=== PATIENT | male | born 1985 | race American Indian/Alaskan Native ===

== ENCOUNTER 2018-11-24 19:28 | Emergency (ER) | payer SELFPAY ==
--- NOTE | 2018-11-24 19:51 | Event Note ---
ED Screening Note ED Screening Note: pt from [facility] on 101 pt states he was hearing voices saying to kill himself states that the voices said to cut his wrist denies trying to hurt himself before no HI PMHx asthma no allergies to meds +tobacco non drinker denies drug use This initial assessment/diagnostic orders/clinical plan/treatment(s) is/are subject to change based on patients health status, clinical progression and re- assessment by fellow clinical providers in the ED. Further treatment and workup at subsequent clinical providers discretion. Patient/guardian urged not to elope from the ED as their condition may be serious if not clinically assessed and managed. Initial orders include: psych protocol
[2018-11-24 19:53] VITALS: BP 142/79
[2018-11-24 20:28] LABS: Basophils # (Auto) 0.1 K/mm3 (0.0-0.1); Basophils % (Auto) 1.7 % (0.0-1.8); Eosinophils # (Auto) 0.1 K/mm3 (0.0-0.4); Eosinophils % (Auto) 1.6 % (0.0-4.3); Hematocrit 50.1 % (35.5-45.6); Lymphocytes # (Auto) 2.5 K/mm3 (1.2-5.4); Lymphocytes % (Auto) 34.1 % (13.4-35.0); Mean Corpuscular HGB Conc 34 % (32-34); Mean Corpuscular Volume 92 fl (84-94); Monocytes # (Auto) 0.3 K/mm3 (0.0-0.8); Monocytes % (Auto) 4.6 % (0.0-7.3); Platelet Count 270 K/mm3 (140-440); Red Blood Count 5.46 M/mm3 (3.65-5.03); Red Cell Distribution Width 13.6 % (13.2-15.2)
[2018-11-24 20:54] LABS: Bilirubin,Urine NEG (Negative); Blood,Urine NEG (Negative); Color,Urine Yellow (Yellow); Protein,Urine <15 mg/dL mg/dL (Negative); Urobilinogen,Urine < 2.0 mg/dL (<2.0)
[2018-11-24 20:56] LABS: Amphetamine Screen,Urine PRESUMPTIVE NEGATIVE; Benzodiazepines Screen,Urine PRESUMPTIVE NEGATIVE; Cannabinoid Screen,Urine PRESUMPTIVE NEGATIVE; Cocaine Screen,Urine PRESUMPTIVE NEGATIVE; Methadone Screen,Urine PRESUMPTIVE NEGATIVE; Opiate Screen,Urine PRESUMPTIVE NEGATIVE
--- NOTE | 2018-11-24 21:23 | Emergency Department Report ---
ED Psych HPI - General Chief Complaint: Psych Stated Complaint: MH EVAL Time Seen by Provider: 11/24/18 19:50 Source: patient Mode of arrival: Ambulatory - History of Present Illness Initial Comments: 33 yo M w/ hx schizophrenia presents to ED from [facility]. Pt reported to his counselor that he began hearing voices today telling him to hurt himself. Pt states the voices are telling him to cut himself with a razor, but pt states, "That's stupid because it's a dull razor." Patient also reports that the razors are locked up and he does not have access to them. Patient states he is not suicidal and does not feel compelled to hurt himself. Denies HI. Denies drugs or alcohol use. States he is on Invega. Complaint: other (auditory hallucinations) -: This afternoon Associated Psychiatric Symptoms: auditory hallucinations History of same: Yes Improves With: none Worsens With: medication Associated Symptoms: denies other symptoms Treatments Prior to Arrival: placed on mental he - Related Data Home Medications Medication Instructions Recorded Confirmed Last Taken Lurasidone HCl [Latuda] 20 mg PO QDAY 07/26/18 11/24/18 07/26/18 OLANzapine [ZyPREXA] 2.5 mg PO QDAY 07/26/18 11/24/18 07/26/18 Allergies Allergy/AdvReac Type Severity Reaction Status Date / Time No Known Allergies Allergy Unverified 07/25/18 23:03 ED Review of Systems ROS: Stated complaint: MH EVAL Other details as noted in HPI Comment: All other systems reviewed and negative Psychiatric: auditory hallucinations. denies: depression, visual hallucinations, homicidal thoughts, suicidal thoughts ED Past Medical Hx - Past Medical History Hx Psychiatric Treatment: Yes (Bipolar, Schizophrenia, boarderline personality disorder) Hx Asthma: Yes - Social History Smoking Status: Current Every Day Smoker Substance Use Type: None - Medications Home Medications: Home Medications Medication Instructions Recorded Confirmed Last Taken Type Lurasidone HCl [Latuda] 20 mg PO QDAY 07/26/18 11/24/18 07/26/18 History OLANzapine [ZyPREXA] 2.5 mg PO QDAY 07/26/18 11/24/18 07/26/18 History ED Physical Exam - General Limitations: No Limitations General appearance: alert, in no apparent distress - Head Head exam: Present: atraumatic, normocephalic - Eye Eye exam: Present: normal appearance, PERRL, EOMI - ENT ENT exam: Present: mucous membranes moist - Neck Neck exam: Present: normal inspection - Respiratory Respiratory exam: Present: normal lung sounds bilaterally. Absent: respiratory distress - Cardiovascular Cardiovascular Exam: Present: regular rate, normal rhythm - GI/Abdominal GI/Abdominal exam: Present: soft. Absent: distended, tenderness - Extremities Exam Extremities exam: Present: normal inspection - Neurological Exam Neurological exam: Present: alert, oriented X3 - Psychiatric Psychiatric exam: Present: normal affect, normal mood. Absent: depressed - Skin Skin exam: Present: warm, dry, intact, normal color. Absent: rash ED Course Vital Signs 11/24/18 19:51 Temperature 98.2 F Pulse Rate 79 Respiratory 16 Rate Blood Pressure 142/79 O2 Sat by Pulse 99 Oximetry ED Medical Decision Making - Lab Data Result diagrams: 11/24/18 20:11 11/24/18 20:11 - Medical Decision Making 33 yo M w/ schizophrenia and auditory hallucinations. Pt ignoring voices telling him to hurt hi,self. States that he is not suicidal. Pt seen and evaluated by energy broker. Does not meet inpatient criteria at this time. Advised to f/u with the [facility]. Return precautions given. Will d/c at this time. - Differential Diagnosis schizophrenia Critical care attestation.: If time is entered above; I have spent that time in minutes in the direct care of this critically ill patient, excluding procedure time. ED Disposition Clinical Impression: Schizophrenia Disposition: DC-01 TO HOME OR SELFCARE Is pt being admited?: No Condition: Stable Instructions: Schizophrenia (ED) Referrals: PRIMARY CARE, [Primary Care Provider] - 3-5 Days [facility] [Outside] - 3-5 Days Time of Disposition: 21:55
[2018-11-24 21:39] LABS: Alanine Aminotransferase 11 units/L (7-56); Albumin 4.2 g/dL (3.9-5); BUN/Creatinine Ratio 6; Blood Urea Nitrogen 8 mg/dL (9-20); Calcium 8.9 mg/dL (8.4-10.2); Hemolysis Index 21
== END 2018-11-24 22:44 | disposition home or self-care (01) ==
LOC: ED 19:28
DX: F20.9 Schizophrenia, unspecified (principal); F17.200 Nicotine dependence, unspecified, uncomplicated; J45.909 Unspecified asthma, uncomplicated
CPT/HCPCS: 36415; 80053; 80307; 80320; 81001; 85025; G0480

== ENCOUNTER 2020-01-04 16:13 | Emergency (ER) | payer SELFPAY ==
[2020-01-04 17:15] VITALS: BP 131/81
[2020-01-04] MEDS ORDERED: diphenhydrAMINE 50 MG/ML VIAL IM STA (20:41)
--- NOTE | 2020-01-04 20:48 | Emergency Department Report ---
ED General Adult HPI - General Chief complaint: Medical Clearance Stated complaint: TIRED Time Seen by Provider: 01/04/20 20:36 Source: patient Mode of arrival: Ambulatory Limitations: No Limitations - History of Present Illness Initial comments: 34-year-old -[place] male with past mental history schizophrenia currently taking Invega injections reports developing a fine tremor facial twitch and excessive blinking of an unknown etiology he reports no headache no chest pain no shortness of breath no palpitations. His doctor prescribed Cogentin which has not been helping to resolve his symptoms symptoms have been present for about 3weeks was correlates with with the medication Radiation: non-radiation Improves with: none Worsens with: none Associated Symptoms: denies other symptoms Treatments Prior to Arrival: none - Related Data Home Medications Medication Instructions Recorded Confirmed Last Taken Lurasidone HCl [Latuda] 20 mg PO QDAY 07/26/18 11/24/18 07/26/18 OLANzapine [ZyPREXA] 2.5 mg PO QDAY 07/26/18 11/24/18 07/26/18 Previous Rx's Medication Instructions Recorded Last Taken Type Ondansetron [Zofran Odt] 4 mg PO Q8HR PRN #12 tab.rapdis 11/25/19 Unknown Rx Allergies Allergy/AdvReac Type Severity Reaction Status Date / Time No Known Allergies Allergy Verified 11/25/19 13:00 ED Review of Systems ROS: Stated complaint: TIRED Other details as noted in HPI Comment: All other systems reviewed and negative ED Past Medical Hx - Past Medical History Previous Medical History?: Yes Hx Psychiatric Treatment: Yes (Bipolar, Schizophrenia, boarderline personality disorder) Hx Asthma: Yes - Social History Smoking Status: Current Every Day Smoker Substance Use Type: None - Medications Home Medications: Home Medications Medication Instructions Recorded Confirmed Last Taken Type Lurasidone HCl [Latuda] 20 mg PO QDAY 07/26/18 11/24/18 07/26/18 History OLANzapine [ZyPREXA] 2.5 mg PO QDAY 07/26/18 11/24/18 07/26/18 History Ondansetron [Zofran Odt] 4 mg PO Q8HR PRN #12 tab.rapdis 11/25/19 Unknown Rx ED Physical Exam - General Limitations: No Limitations General appearance: alert, in no apparent distress - Head Head exam: Present: atraumatic, normocephalic - Eye Eye exam: Present: normal appearance - ENT ENT exam: Present: normal exam, normal orophraynx, mucous membranes moist - Neck Neck exam: Present: normal inspection, full ROM - Respiratory Respiratory exam: Present: normal lung sounds bilaterally. Absent: respiratory distress - Cardiovascular Cardiovascular Exam: Present: regular rate, normal rhythm. Absent: systolic murmur, diastolic murmur, rubs, gallop - GI/Abdominal GI/Abdominal exam: Present: soft, normal bowel sounds - Rectal Rectal exam: Present: deferred - Extremities Exam Extremities exam: Present: normal inspection, normal capillary refill - Back Exam Back exam: Present: normal inspection, CVA tenderness (R), CVA tenderness (L) - Neurological Exam Neurological exam: Present: alert, oriented X3, CN II-XII intact, other (Facial twitch increased blinking very fine tremor) - Psychiatric Psychiatric exam: Present: normal affect, normal mood - Skin Skin exam: Present: warm, dry, intact, normal color. Absent: rash ED Course Vital Signs 01/04/20 17:12 Temperature 98.1 F Pulse Rate 90 Respiratory 20 Rate Blood Pressure 131/81 O2 Sat by Pulse 97 Oximetry ED Medical Decision Making - Medical Decision Making 34-year-old male schizophrenia on Invega treatment presents emergency department with what appears to be a medication reaction for favoring that of a version of tardive dyskinesia. He reports no headache no fevers chills or sweats was provided Benadryl Critical care attestation.: If time is entered above; I have spent that time in minutes in the direct care of this critically ill patient, excluding procedure time. ED Disposition Clinical Impression: Medication reaction Disposition: DC-01 TO HOME OR SELFCARE Is pt being admited?: No Does the pt Need Aspirin: No Condition: Stable Additional Instructions: Tardive Dyskinesia Tardive dyskinesia is a side effect of antipsychotic medications. These drugs are used to treat schizophrenia and other mental health disorders. TD causes stiff, jerky movements of your face and body that you can't control. You might blink your eyes, stick out your tongue, or wave your arms without meaning to do so. Not everyone who takes an antipsychotic drug will get it. But if it happens, its sometimes permanent. So if you have movements you can't control, let your doctor know right away. To ease your symptoms, your doctor may: Lower the dose Add another medication to what youre taking to act as an antidote Switch you to a different drug Symptoms Tardive dyskinesia causes stiff, jerky movements that you can't control. They include: Orofacial dyskinesia or [id number] dyskinesia: Uncontrolled movements in your face -- namely your lips, jaw, or tongue. You might: Stick out your tongue without trying Blink your eyes fast Chew Smack or pucker your lips Puff out your cheeks Frown Grunt Dyskinesia of the limbs: It can also affect your arms, legs, fingers, and toes. That can cause you to: Wiggle your fingers Tap your feet Flap your arms Thrust out your pelvis Sway from side to side These movements can be fast or slow. You may find it hard to work and stay active. Causes and Risk Factors Antipsychotic meds treat schizophrenia, bipolar disorder, and other brain conditions. Doctors also call them neuroleptic drugs. They block a brain chemical called dopamine. It helps cells talk to each other and makes the muscles move smoothly. When you have too little of it, your movements can become jerky and out of control. You can get TD if you take an antipsychotic drug. Usually you have to be on it for 3 months or more. But there have been rare cases of it after a single dose of an antipsychotic medicine. Older versions of these drugs are more likely to cause this problem than newer ones. Some studies find a similar risk from both types, though. Antipsychotic medications that can cause tardive dyskinesia include antipsychotics like: Haloperidol (Haldol) Fluphenazine Risperidone (Risperdal) Olanzapine (Zyprexa) Your chances of getting TD go up the longer you take an antipsychotic medicine. Some drugs that treat nausea, reflux, and other stomach problems can also cause TD if you take them for more than 3 months. These include: Metoclopramide (Reglan) Prochlorperazine (Compazine) You're more likely to get it if you: Are a woman who has gone through menopause Are over age 55 Abuse alcohol or drugs Are or [place] Diagnosis TD can be hard to diagnose. Symptoms might not appear until months or years after you start taking antipsychotic medicine. Or you might first notice the movements after you've already stopped taking the drug. The timing can make it hard to know whether the medicine caused your symptoms. Abnormal Involuntary Movement Scale (AIMS): If you take medicine for mental health conditions, your doctor should check you at least once a year to make sure you don't have TD. He can give you a physical exam called the Abnormal Involuntary Movement Scale, which will help him rate any abnormal movements. He can also do tests to find out whether you have another disorder that causes abnormal movements, like: Cerebral palsy Dimmit's disease Parkinson's disease Stroke Tourette's syndrome To rule out these conditions, you may get: Blood tests Imaging scans of the brain, such as a CT or MRI scan Treatment and Prevention The goal is to prevent TD. When your doctor prescribes a new drug to treat a mental health disorder, ask about its side effects. The benefits of the drug should outweigh the risks. If you have movement problems, tell your doctor but don't stop taking the drug on your own. Your doctor can take you off the medicine that caused the movements, or lower the dose. You might need to switch to a newer antipsychotic drug that may be less likely to cause TD. There are two FDA-approved medicines to treat tardive dyskinesia: Deutetrabenazine (Austedo) Valbenazine (Ingrezza) Both of these medicines work in similar ways to regulate the amount of dopamine flow in brain areas that control certain kinds of movements. Both can sometimes cause drowsiness. Austedo also has been shown to sometimes cause depression when used in patients with Dimmit's disease. There's no proof that natural remedies can treat it, but some might help with movements: Ginkgo biloba Melatonin Vitamin B6 Vitamin E Talk to your doctor before you take any supplements for your symptoms. Referrals: PRIMARY CARE,MD [Primary Care Provider] - 2-3 Days (Please call your ps ychiatrist to alert of your symptoms for medication adjustments and please continue to take Benadryl twice a day)
== END 2020-01-04 21:10 | disposition home or self-care (01) ==
LOC: ED 16:13
DX: T50.905A Adverse effect of unspecified drugs, medicaments and biological substances, initial encounter (principal); F25.0 Schizoaffective disorder, bipolar type; J45.909 Unspecified asthma, uncomplicated; F17.200 Nicotine dependence, unspecified, uncomplicated; Z79.899 Other long term (current) drug therapy; Y93.89 Activity, other specified
CPT/HCPCS: 96372; 99282; J1200

== ENCOUNTER 2020-06-23 09:52 | Emergency (ER) | payer SELFPAY ==
[2020-06-23] MEDS ORDERED: LIDOCAINE-MPF (1%) 10 MG/1 ML VIAL 5 ML INFILTRATI ONE (10:08)
[2020-06-23] MEDS ORDERED: dexAMETHasone 4 MG/ML VIAL IM ONE (10:09)
--- NOTE | 2020-06-23 10:10 | Event Note ---
ED Screening Note ED Screening Note: sob dysuria sore throat HR elevated This initial assessment/diagnostic orders/clinical plan/treatment(s) is/are subject to change based on patients health status, clinical progression and re- assessment by fellow clinical providers in the ED. Further treatment and workup at subsequent clinical providers discretion. Patient/guardian urged not to elope from the ED as their condition may be serious if not clinically assessed and managed. Initial orders include: UA XRAY
[2020-06-23 10:40] LABS: Bilirubin,Urine NEG (Negative); Blood,Urine NEG (Negative); Color,Urine Yellow (Yellow); Mucus,Urine FEW /HPF; Urobilinogen,Urine < 2.0 mg/dL (<2.0)
[2020-06-23] MEDS ORDERED: IBUPROFEN 800 MG TAB PO ONE (10:42)
--- NOTE | 2020-06-23 10:42 | Emergency Department Report ---
Minor Respiratory - HPI Chief Complaint: Sore Throat Stated Complaint: SOB/FACE SWOLLEN/SORE THROAT Time Seen by Provider: 06/23/20 10:08 Duration: 2 Days Pain Location: Throat, Chest, Other Severity: moderate Minor Respiratory: Yes Sore Throat, Yes Able to Tolerate Fluids, Yes Cough, Yes Fever, No Rhinorrhea, No Ear Pain, No Sick Contacts, No Hemoptysis, No Chest Pain, No Shortness of Breath Other History: 34 yo comes to er with numerous co: sore throat, cough and penile dc. He is hoarse in triage. VSS. controlling secretions and taking po ED Review of Systems ROS: Stated complaint: SOB/FACE SWOLLEN/SORE THROAT Other details as noted in HPI Comment: All other systems reviewed and negative ED Past Medical Hx - Past Medical History Previous Medical History?: Yes Hx Psychiatric Treatment: Yes (Bipolar, Schizophrenia, boarderline personality disorder) Hx Asthma: Yes - Surgical History Past Surgical History?: No - Family History Family history: no significant - Social History Smoking Status: Current Every Day Smoker Substance Use Type: None - Medications Home Medications: Home Medications Medication Instructions Recorded Confirmed Last Taken Type Lurasidone HCl [Latuda] 20 mg PO QDAY 07/26/18 11/24/18 07/26/18 History OLANzapine [ZyPREXA] 2.5 mg PO QDAY 07/26/18 11/24/18 07/26/18 History Ondansetron [Zofran Odt] 4 mg PO Q8HR PRN #12 tab.rapdis 11/25/19 Unknown Rx Amoxicillin [Trimox CAP] 500 mg PO BID #20 capsule 06/23/20 Unknown Rx Cetirizine HCl [ZyrTEC] 10 mg PO DAILY #30 capsule 06/23/20 Unknown Rx Fluticasone [Flonase] 1 spray NS QDAY #1 bottle 06/23/20 Unknown Rx predniSONE [Deltasone] 20 mg PO DAILY #5 tablet 06/23/20 Unknown Rx Minor Respiratory Exam - Exam General: Vital signs noted. No distress. Alert and acting appropriately. HR 90 ON EXAM HEENT: Yes Pharyngeal Erythema (hoarse), Yes Moist Mucous Membranes, No Pharynge al Exudates, No Rhinorrhea, No Conjuctival Injection, No Frontal Tenderness, No Maxillary Tenderness Ear: Neither TM Bulge, Neither TM Erythema, Neither EAC Pain, Neither EAC Discharge Neck: Yes Supple, No Adenopathy Lungs: Yes Good Air Exchange, No Wheezes, No Ronchi, No Stridor, No Cough, No Labored Respirations, No Retractions, No Use of Accessory Muscles, No Other Abnormal Lung Sounds Heart: Yes Regular, No Murmur Abdomen: Yes Normal Bowel Sounds, No Tenderness, No Peritoneal Signs Skin: No Rash, No Edema Neurologic: Alert and oriented, no deficits. Musculoskeletal: Unremarkable. ED Course Vital Signs 06/23/20 10:08 Temperature 99.3 F Pulse Rate 114 H Respiratory 20 Rate Blood Pressure 144/81 O2 Sat by Pulse 99 Oximetry ED Medical Decision Making - Radiology Data Radiology results: report reviewed, image reviewed see report - Medical Decision Making Vital Signs 06/23/20 10:08 Temperature 99.3 F Pulse Rate 114 H Respiratory 20 Rate Blood Pressure 144/81 O2 Sat by Pulse 99 Oximetry Vital Signs 06/23/20 10:08 Temperature 99.3 F Pulse Rate 114 H Respiratory 20 Rate Blood Pressure 144/81 O2 Sat by Pulse 99 Oximetry Lab Results 06/23/20 Range/Units Unknown Urine Color Yellow (Yellow) Urine Turbidity Clear (Clear) Urine pH 5.0 (5.0-7.0) Ur Specific [place]ill 1.026 (1.003-1.030) Urine Protein 30 mg/dl (Negative) mg/dL Urine Glucose (UA) >=500 (Negative) mg/dL Urine Ketones Neg (Negative) mg/dL Urine Blood Neg (Negative) Urine Nitrite Neg (Negative) Urine Bilirubin Neg (Negative) Urine Urobilinogen < 2.0 (<2.0) mg/dL Ur Leukocyte Esterase Tr (Negative) Urine WBC (Auto) 21.0 H (0.0-6.0) /HPF Urine RBC (Auto) 3.0 (0.0-6.0) /HPF U Epithel Cells (Auto) < 1.0 (0-13.0) /HPF Urine Mucus Few /HPF medicated with rocephin for pharyngitis/STI concern ua noted given PO azithromycin xray noted dc home with treatment for URI taking PO pt ambulatory and non ill appearing on reexam. HR 90. Pt verbalizes understanding of dc plan of care including safe sex, follow up and medications. - Differential Diagnosis ro pna/uri/viral illness/sti Critical care attestation.: If time is entered above; I have spent that time in minutes in the direct care of this critically ill patient, excluding procedure time. ED Disposition Clinical Impression: URI (upper respiratory infection), Concern about STD in male without diagnosis Disposition: DC- TO HOME OR SELFCARE Is pt being admited?: No Does the pt Need Aspirin: No Condition: Stable Instructions: Upper Respiratory Infection, Adult Additional Instructions: meds as ordered follow up with pcp referral below stay well hydrated motrin or tylenol for pain Prescriptions: predniSONE [Deltasone] 20 mg PO DAILY #5 tablet Fluticasone [Flonase] 1 spray NS QDAY #1 bottle Amoxicillin [Trimox CAP] 500 mg PO BID #20 capsule Cetirizine HCl [ZyrTEC] 10 mg PO DAILY #30 capsule Referrals: PATTIE WOLFE MD [Staff Physician] - 3-5 Days Forms: Work/School Release Form(ED) Time of Disposition: 10:56
[2020-06-23] MEDS ORDERED: AZITHROMYCIN 250 MG TAB PO ONE (10:54)
--- NOTE | 2020-06-23 10:54 | XRay Report ---
CHEST 2 VIEWS INDICATION / CLINICAL INFORMATION: Shortness of breath. COMPARISON: None available. FINDINGS: SUPPORT DEVICES: None. HEART / MEDIASTINUM: No significant abnormality. LUNGS / PLEURA: No significant pulmonary or pleural abnormality. No pneumothorax. ADDITIONAL FINDINGS: No significant additional findings. IMPRESSION: 1. No acute findings. Signer Name: Kaden Gary MD Signed: 06/23/2020 10:47 AM Workstation Name: [id number]
[2020-06-23 12:01] VITALS: BP 148/80
== END 2020-06-23 12:00 | disposition home or self-care (01) ==
LOC: ED 09:52
DX: J06.9 Acute upper respiratory infection, unspecified (principal); Z20.2 Contact with and (suspected) exposure to infections with a predominantly sexual mode of transmission; J45.909 Unspecified asthma, uncomplicated; Z79.899 Other long term (current) drug therapy; F17.200 Nicotine dependence, unspecified, uncomplicated
CPT/HCPCS: 71046; 81001; 87086; 96372; 99283; J0696; J1100